=== PATIENT | male | born 1965 ===

== ENCOUNTER → 2017-11-08 07:50 | Outpatient (CLI) | payer OTHER | END | disposition home or self-care (01) | LOC: LAB 07:50 | DX: I10 Essential (primary) hypertension (principal); E11.9 Type 2 diabetes mellitus without complications; E03.8 Other specified hypothyroidism; E78.2 Mixed hyperlipidemia; N40.0 Benign prostatic hyperplasia without lower urinary tract symptoms ==

== ENCOUNTER 2018-03-20 07:37 | Outpatient (CLI) | payer OTHER | END 2018-03-20 07:40 | disposition home or self-care (01) | LOC: LAB 07:37 | DX: I10 Essential (primary) hypertension (principal); E11.9 Type 2 diabetes mellitus without complications; E03.8 Other specified hypothyroidism; E78.2 Mixed hyperlipidemia ==